=== PATIENT | female | born 1965 | race Caucasian/White ===

== ENCOUNTER 2020-11-10 07:26 | Emergency (ER) | payer OTHER, SELFPAY ==
[~2020-11-10] VITALS: Ht 157.5 cm; Wt 88.5 kg
[2020-11-10 07:40] VITALS: Ht 157.5 cm; Wt 88.5 kg
[2020-11-10 11:22] VITALS: BP 150/88
== END 2020-11-10 11:22 | disposition home or self-care (01) ==
LOC: ED 07:26
DX: R07.0 Pain in throat (principal); G89.29 Other chronic pain; K21.9 Gastro-esophageal reflux disease without esophagitis; I48.91 Unspecified atrial fibrillation